=== PATIENT | female | born 1995 | race Caucasian/White ===

== ENCOUNTER 2024-08-25 07:13 | Outpatient (CLI) | payer OTHER | END 2024-08-25 07:22 | disposition home or self-care (01) | LOC: SONOGRAMA 07:13 | DX: E04.1 Nontoxic single thyroid nodule (principal) ==

== ENCOUNTER 2024-09-06 07:34 | Outpatient (CLI) | payer OTHER | END 2024-09-06 07:42 | disposition home or self-care (01) | LOC: SONOGRAMA 07:34 | DX: K76.0 Fatty (change of) liver, not elsewhere classified (principal) ==

== ENCOUNTER 2024-09-28 15:54 | Outpatient (CLI) | payer OTHER ==
[2024-09-28 16:49] LABS: HEMATOCRIT 38.1 % (36.0-45.00); HEMOGLOBIN 13.1 g/dL (12.0-15.00); MEAN CELL VOLUME 84.4 fL (80.00-100.00); MEAN CORPUSCULAR HGB CONC 34.4 g/dl (32.0-36.0); PLATELET COUNT 231 K/uL (150-450); RED BLOOD COUNT 4.52 M/uL (4.00-6.00)
[2024-09-28 19:34] LABS: RH POSITIVE
== END 2024-09-28 15:55 | disposition home or self-care (01) ==
LOC: LAB 15:54
PROVIDERS: ATTEND Obstetrics & Gynecology
DX: N91.1 Secondary amenorrhea (principal); O02.1 Missed abortion; N94.89 Other specified conditions associated with female genital organs and menstrual cycle

== ENCOUNTER 2024-09-30 15:53 | Outpatient (CLI) | payer OTHER | END 2024-09-30 15:54 | disposition home or self-care (01) | LOC: LAB 15:53 | PROVIDERS: ATTEND Obstetrics & Gynecology | DX: N91.1 Secondary amenorrhea (principal); O02.1 Missed abortion; N94.89 Other specified conditions associated with female genital organs and menstrual cycle ==

== ENCOUNTER → 2024-11-25 14:09 | Outpatient (CLI) | payer OTHER | END | disposition home or self-care (01) | LOC: PRENATAL 14:09 | PROVIDERS: ATTEND Obstetrics & Gynecology Maternal & Fetal Medicine | DX: O36.80X0 Pregnancy with inconclusive fetal viability, not applicable or unspecified (principal); Z36.82 Encounter for antenatal screening for nuchal translucency; Z14.8 Genetic carrier of other disease; O99.280 Endocrine, nutritional and metabolic diseases complicating pregnancy, unspecified trimester; Z3A.12 12 weeks gestation of pregnancy ==

== ENCOUNTER 2025-01-18 11:43 | Outpatient (CLI) | payer OTHER | END 2025-01-18 11:44 | disposition home or self-care (01) | LOC: PRENATAL 11:43 | PROVIDERS: ATTEND Obstetrics & Gynecology Maternal & Fetal Medicine | DX: O44.00 Complete placenta previa NOS or without hemorrhage, unspecified trimester (principal); O99.280 Endocrine, nutritional and metabolic diseases complicating pregnancy, unspecified trimester; Z3A.20 20 weeks gestation of pregnancy ==

== ENCOUNTER 2025-04-19 13:31 | Outpatient (CLI) | payer OTHER | END 2025-04-19 13:32 | disposition home or self-care (01) | LOC: PRENATAL 13:31 | PROVIDERS: ATTEND Obstetrics & Gynecology Maternal & Fetal Medicine | DX: O26.849 Uterine size-date discrepancy, unspecified trimester (principal); O36.8199 Decreased fetal movements, unspecified trimester, other fetus; O99.280 Endocrine, nutritional and metabolic diseases complicating pregnancy, unspecified trimester; Z3A.33 33 weeks gestation of pregnancy ==

== ENCOUNTER 2025-05-25 14:30 | Inpatient (IN) | payer OTHER ==
[~2025-05-25] VITALS: Ht 157.5 cm; Wt 74.8 kg
[2025-05-25 16:06] LABS: URINE APPEARANCE Clear; URINE BILIRRUBIN Negative (NEGATIVE); URINE BLOOD Negative; URINE COLOR Yellow; URINE KETONE Negative (NEGATIVE); URINE LEUKOCYTE Negative; URINE NITRATE Negative; URINE PROTEIN Negative (NEGATIVE); URINE UROBILINOGEN 0.2 E.U./dl
[2025-05-25 16:18] LABS: URINE GLUCOSE 100 MG/DL (NEGATIVE); URINE RBC 0.2 uL (0.0-20.8); URINE WBC 0.7 uL (0.0-23.2)
[2025-05-25 16:19] LABS: URINE BACTERIA 172.3 uL (0.0-1933); URINE CAST 0.00 uL (0.0-1.40); URINE EPITHELIAL CELLS 5.6 uL (0.0-38.8)
[2025-05-25 16:28] LABS: INR 0.95
[2025-05-25 16:32] LABS: ALT/SGPT 25.0 U/L (12-78); AST/SGOT 37.0 U/L (15-37); BILIRUBIN TOTAL 0.45 mg/dL (0.3-1.2); BUN CREA RATIO 17.0 (7.0-25.0); CREATININE SERUM 0.46 mg/dL (0.55-1.02); GFR 159.5; GLOBULINA 3.9 G/DL (2.4-3.5); GLUCOSE FASTING 96.0 mg/dL (65-100); OSMOLALITY SERUM 278.0 MOSM/KG (275-295)
[2025-06-01 13:45] VITALS: BP 128/84
[2025-06-01] MEDS ORDERED: MISOPROSTOL 25 MCG/4 ML GEL.W.APPL VAG ONE ×2 (15:15→19:30)
[2025-06-01 15:18] VITALS: BP 118/62
[2025-06-01 15:34] LABS: URINE APPEARANCE Clear; URINE BILIRRUBIN Negative (NEGATIVE); URINE BLOOD Negative; URINE COLOR Yellow; URINE GLUCOSE Negative (NEGATIVE); URINE KETONE Trace (NEGATIVE); URINE LEUKOCYTE Negative; URINE NITRATE Negative; URINE PROTEIN Trace (NEGATIVE); URINE UROBILINOGEN 1.0 E.U./dl
[2025-06-01 15:35] LABS: BASO % 0.2 % (0.1-1.2); EOS # 0.01 (0.04-0.54); EOS % 0.1 % (0.7-7.0); LYMPH # 1.43 (1.18-3.74); LYMPH % 11.7 % (19.3-53.1); MEAN PLATELET VOLUME 12.70 fl (9.4-12.4); MONO # 0.79 (0.24-0.82); MONO % 6.4 % (4.7-12.5); NEUT # 9.94 (1.56-6.13); NEUT % 81.1 % (34.0-71.1); RED CELL DISTRIBUTION WIDTH 12.8 % (11.6-14.4)
[2025-06-01 15:38] LABS: URINE BACTERIA 97.2 uL (0.0-1933); URINE EPITHELIAL CELLS 13.2 uL (0.0-38.8); URINE RBC 4.5 uL (0.0-20.8); URINE WBC 2.7 uL (0.0-23.2)
[2025-06-01] MEDS ORDERED: LEVOTHYROXINE25 MCG PO (15:41)
[2025-06-01] MEDS ORDERED: PRENATABS RX T1 EACH PO (15:41)
[2025-06-01 15:45] LABS: URINE CAST 0.00 uL (0.0-1.40)
[2025-06-01 15:52] LABS: INR 0.98
[2025-06-01 15:57] LABS: ALT/SGPT 26.0 U/L (12-78); AST/SGOT 19.0 U/L (15-37); BILIRUBIN TOTAL 0.52 mg/dL (0.3-1.2); BUN CREA RATIO 23.0 (7.0-25.0); CREATININE SERUM 0.43 mg/dL (0.55-1.02); GFR 172.41; GLOBULINA 3.7 G/DL (2.4-3.5); GLUCOSE FASTING 86.0 mg/dL (65-100); OSMOLALITY SERUM 276.0 MOSM/KG (275-295)
[2025-06-01] MEDS ORDERED: MORPHINE SULFATE 4 MG/ML CARTRIDGE IV PRN (19:30)
[2025-06-01 20:08] VITALS: BP 127/81
[2025-06-01 23:42] VITALS: BP 120/82
[2025-06-02] VITALS (8 sets, daily range): BP systolic 109–132; BP diastolic 56–71
[2025-06-02] MEDS ORDERED: OXYTOCIN 500 ML IV SCH (09:30)
[2025-06-02] MEDS ORDERED: CHLORHEXIDINE GLUCONATE 120 ML BOTTLE TOP ONE (22:30)
[2025-06-02] MEDS ORDERED: ERYTHROMYCIN BASE OPHT 1GM EACH TUBE OP ONE (22:30)
[2025-06-02] MEDS ORDERED: OXYTOCIN 1,000 ML IV SCH (22:30)
[2025-06-02] MEDS ORDERED: LIDOCAINE HCL 1% 10ML VIAL IJ ONE (22:30)
[2025-06-03 04:08] VITALS: BP 119/83
[2025-06-03] MEDS ORDERED: ACETAMINOPHEN 500 MG GEL..CAP PO PRN (06:00)
[2025-06-03] MEDS ORDERED: LEVOTHYROXINE SODIUM 25 MCG TABLET PO SCH (06:00)
[2025-06-03 08:15] VITALS: BP 120/83
[2025-06-03] MEDS ORDERED: PNV,CALCIUM 72/IRON/FOLIC ACID 1 TAB TABLET PO SCH (09:00)
[2025-06-03 11:51] LABS: BASO % 0.2 % (0.1-1.2); EOS # 0.01 (0.04-0.54); EOS % 0.1 % (0.7-7.0); LYMPH # 1.51 (1.18-3.74); LYMPH % 8.5 % (19.3-53.1); MEAN PLATELET VOLUME 11.70 fl (9.4-12.4); MONO # 1.55 (0.24-0.82); MONO % 8.7 % (4.7-12.5); NEUT # 14.64 (1.56-6.13); NEUT % 81.9 % (34.0-71.1); RED CELL DISTRIBUTION WIDTH 12.8 % (11.6-14.4)
[2025-06-03 17:04] VITALS: BP 120/84
[2025-06-04 00:37] VITALS: BP 117/72
[2025-06-04 08:21] VITALS: BP 125/82
== END 2025-06-04 16:47 | disposition home or self-care (01) | DRG 807 ==
LOC: OB/GYN 14:30 → LDR 06-01 13:35 → OB/GYN 06-02 22:45
PROVIDERS: Obstetrics & Gynecology; ADMIT Student in an Organized Health Care Education/Training Program; ATTEND Student in an Organized Health Care Education/Training Program
PROC: 3E033VJ Introduction of Other Hormone into Peripheral Vein, Percutaneous Approach (ICD-10-PCS; 2025-06-01)
PROC: 3E0P7VZ Introduction of Hormone into Female Reproductive, Via Natural or Artificial Opening (ICD-10-PCS; 2025-06-01)
PROC: 4A1HXCZ Monitoring of Products of Conception, Cardiac Rate, External Approach (ICD-10-PCS; 2025-06-01)
PROC: 10E0XZZ Delivery of Products of Conception, External Approach (ICD-10-PCS; principal; 2025-06-02)
PROC: 0HQ9XZZ Repair Perineum Skin, External Approach (ICD-10-PCS; 2025-06-02)
DX: O70.0 First degree perineal laceration during delivery (principal); Z37.0 Single live birth; Z3A.39 39 weeks gestation of pregnancy